=== PATIENT | male | born 1965 | race Caucasian/White ===

== ENCOUNTER 2017-03-18 17:59 | Emergency (ER) | payer MEDICARE, BC ==
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
--- NOTE | 2017-03-18 19:30 | ERNOTE ---
Upper Extremity HPI - General Extremities Pain Location: elbow: left Time Seen by Provider: 03/18/17 18:26 Source: patient Exam Limitations: no limitations - Immun/Allergies/Home Medications Immunizations: IMMUNIZATION HX Immunizations Up to Date Yes History of Influenza Vaccine Yes Hx Pneumococcal Vaccination Yes Allergies/Adverse Reactions: Allergies Allergy/AdvReac Type Severity Reaction Status Date / Time clindamycin Allergy Mild rash Verified 11/10/16 20:36 oxycodone [Oxycodone] AdvReac Intermediate Other Verified 11/10/16 20:36 Home Medications: HOME MEDICATIONS Allopurinol [Zyloprim] 100 mg PO DAILY 12/07/12 [Last Taken Unknown] Torsemide [Demadex] 200 mg PO DAILY 12/07/12 [Last Taken Unknown] Multivitamin DAILY 07/22/13 [Last Taken Unknown] Acetaminophen [Tylenol] 500 mg PO QID PRN 11/10/16 [Last Taken Unknown] Calcium Cit/Mgox/Vit D3/B6/Min [Cvs Calcium Citrate + D Tab] 1 each PO 11/10/16 [Last Taken Unknown] Dabigatran Etexilate Mesylate [Pradaxa] 150 mg PO BID 11/10/16 [Last Taken Unknown] Eplerenone 50 mg PO BID 11/10/16 [Last Taken Unknown] HYDROmorphone HCL [Dilaudid] 2 mg PO QID PRN 11/10/16 [Last Taken Unknown] Magnesium Oxide [Magnesium] 400 mg PO 11/10/16 [Last Taken Unknown] Melatonin/Pyridoxine HCl (B6) [Melatonin 10 mg Tablet] 1 each PO 11/10/16 [Last Taken Unknown] Pantoprazole Sodium [Protonix] 40 mg PO DAILY 11/10/16 [Last Taken Unknown] Potassium Chloride [K-Dur] 20 meq PO 11/10/16 [Last Taken Unknown] Ranitidine HCl [Zantac] 150 mg PO HS 11/10/16 [Last Taken Unknown] Sertraline HCl [Zoloft] 50 mg PO DAILY 11/10/16 [Last Taken Unknown] Sotalol HCl [Betapace] 80 mg PO 11/10/16 [Last Taken Unknown] Zolpidem Tartrate [Ambien] 10 mg PO HS PRN 11/10/16 [Last Taken Unknown] levETIRAcetam [Keppra] 500 mg PO 11/10/16 [Last Taken Unknown] - History of Present Illness Narrative: Mr. Solo is an extraordinarily, located patient he is on both the heart and liver transplant list at this point. He has had multiple episodes of C. difficile. It's very cautious use of antibiotics with him because of his predisposition to C. difficile. Several days ago he bumped his left elbow and now has erythema and edema in the bursa of the left elbow. Did draw off approximately 3 mL of serosanguineous fluid on the elbow which was sent off to the lab for both culture and sensitivity. I'm going to refrain from any use of any oral antibiotics at this time until we get both a culture and sensitivity back from the lab. Occurred: last week Location of Incident: home Severity: moderate Method of Injury: Reports: direct blow Reason for Fall: Reports: tripped Loss of Consciousness: Reports: no loss of consciousness Other Injuries: Reports: none Review of Systems - Review of Systems Constitutional: Present: See HPI EYE: Present: no symptoms reported ENT: Present: no symptoms reported Respiratory: Present: no symptoms reported Cardiology: Present: no symptoms reported Gastrointestinal/Abdominal: Present: other - chronic liver failure Genitourinary: Present: no symptoms reported Musculoskeletal: Present: joint swelling - and erythema Skin: Present: no symptoms reported Neurological: Present: no symptoms reported Endocrine: Present: no symptoms reported Hematologic/Lymphatic: Present: no symptoms reported Psych: Present: no symptoms reported - Patient's Past Medical History Patient History - Medical: Chronic Pain, GERD, Liver Disease, Seizures Patient History - Cardiac/Respiratory: Atrial Fibrillation, Coronary Heart Disease, Other Patient History - Cancer: No Hx of Cancer Patient History - Surgical Procedures: Other Patient History - Other: None - Social History Living Situations: home Psych History: No pertinent hx Smoking Status: Never smoker - Immunizations Immunizations Up to Date: Yes Hx Pneumococcal Vaccination: Yes History of Influenza Vaccine: Yes Physical Exam - Physical Exam General Appearance: Present: wd/wn, alert, moderate distress Eye Exam: Normal inspection: bilateral, PERRL: bilateral Ears, Nose, Throat: Present: normal ENT inspection, H, normal pharynx Neck: Present: normal inspection, nontender Respiratory: Present: no respiratory distress, normal breath sounds, no accessory muscle use, chest nontender, lungs clear Cardiovascular/Chest: Present: regular rate, rhythm, no murmur, normal peripheral pulses Gastrointestinal/Abdominal: Present: normal bowel sounds, nontender, nondistended, soft, no organomegaly Rectal Exam: Present: deferred Back Exam: Present: normal inspection, normal range of motion Extremity Exam: Present: decreased range of motion, joint redness - in the bursa on the left elbow, joint swelling Neurological Exam: Present: alert, oriented, normal mood/affect Skin Exam: Present: normal color, warm/dry Lymphatic Exam: Present: no adenopathy ED Progress - Vital Signs Patient's Vital Signs:: I have reviewed the patient's vital signs. Vital Signs: Vital Signs 03/18/17 18:12 Temperature 37.8 C H Pulse Rate 80 Respiratory 16 Rate Blood Pressure 123/68 O2 Sat by Pulse 99 Oximetry - Progress/Reassessment Chief Complaint: Upper Extremity Injury/Problem Progress:: Unchanged Plan - Plan Plan: We will await the culture sensitivity from the bursal fluid on the left elbow prior to instigating a potential antibiotics. Patient will call his family physician in 2-3 days for results of the cultures. Departure Clinical Impression: Bursitis Qualifiers: Bursitis location: elbow Elbow bursitis location: olecranon bursitis Laterality : left Qualified Code(s): M70.22 - Olecranon bursitis, left elbow - Departure Disposition: Home self-care Condition: Good Instructions: Elbow Bursitis, [id number] Referrals: Lei Sharp MD [Primary Care Provider] -
[2017-03-18 19:40] VITALS: BP 126/63
== END 2017-03-18 19:43 | disposition home or self-care (01) ==
LOC: ER 17:59
DX: M70.22 Olecranon bursitis, left elbow (principal); G89.29 Other chronic pain; K21.9 Gastro-esophageal reflux disease without esophagitis; I48.91 Unspecified atrial fibrillation; Z79.01 Long term (current) use of anticoagulants; K76.9 Liver disease, unspecified

== ENCOUNTER 2017-03-19 09:43 | Emergency (ER) | payer MEDICARE, BC ==
--- NOTE | 2017-03-19 10:05 | ERNOTE ---
Integumentary HPI - General Presenting Symptoms: abscess Time Seen by Provider: 03/19/17 10:02 Source: patient, family - Immun/Allergies/Home Medications Immunizations: IMMUNIZATION HX Immunizations Up to Date No History of Influenza Vaccine No Hx Pneumococcal Vaccination No Allergies/Adverse Reactions: Allergies Allergy/AdvReac Type Severity Reaction Status Date / Time clindamycin Allergy Mild rash Verified 03/19/17 09:58 oxycodone [Oxycodone] AdvReac Intermediate Other Verified 03/19/17 09:58 Home Medications: HOME MEDICATIONS Allopurinol [Zyloprim] 100 mg PO DAILY 12/07/12 [Last Taken Unknown] Torsemide [Demadex] 200 mg PO DAILY 12/07/12 [Last Taken Unknown] Multivitamin 1 tab PO DAILY 07/22/13 [Last Taken Unknown] Acetaminophen [Tylenol] 500 mg PO QID PRN 11/10/16 [Last Taken Unknown] Calcium Cit/Mgox/Vit D3/B6/Min [Cvs Calcium Citrate + D Tab] 1 each PO DAILY [Last Taken Unknown] Dabigatran Etexilate Mesylate [Pradaxa] 150 mg PO BID 11/10/16 [Last Taken Unknown] Eplerenone 50 mg PO BID 11/10/16 [Last Taken Unknown] HYDROmorphone HCL [Dilaudid] 2 mg PO QID PRN 11/10/16 [Last Taken Unknown] Magnesium Oxide [Magnesium] 400 mg PO DAILY 11/10/16 [Last Taken Unknown] Melatonin/Pyridoxine HCl (B6) [Melatonin 10 mg Tablet] 1 each PO DAILY 11/10/16 [Last Taken Unknown] Pantoprazole Sodium [Protonix] 40 mg PO DAILY 11/10/16 [Last Taken Unknown] Potassium Chloride [K-Dur] 20 meq PO DAILY 11/10/16 [Last Taken Unknown] Ranitidine HCl [Zantac] 150 mg PO HS 11/10/16 [Last Taken Unknown] Sertraline HCl [Zoloft] 50 mg PO DAILY 11/10/16 [Last Taken Unknown] Sotalol HCl [Betapace] 80 mg PO DAILY 11/10/16 [Last Taken Unknown] Zolpidem Tartrate [Ambien] 10 mg PO HS PRN 11/10/16 [Last Taken Unknown] levETIRAcetam [Keppra] 500 mg PO DAILY 11/10/16 [Last Taken Unknown] Doxycycline Monohydrate 100 mg PO BID #30 tablet 03/19/17 [Last Taken Unknown] HYDROmorphone HCL [Dilaudid] 2 mg PO QID PRN #14 tablet 03/19/17 [Last Taken Unknown] - History of Present Illness Narrative: Patient was seen by me yesterday in the ER were we georgina off approximately 3 mL' s of serosanguineous fluid off of his left elbow. Patient had a fever yesterday however the area of erythema appears to have extended somewhat beyond the borders of the bursa. Unfortunately both the patient and his are somewhat reluctant to use any kind of antibiotics unless they are absolutely needed because the patient easily predisposes to C. difficile. Dr. Sharp is out of the office and was unable to follow up with this patient and the office staff is unfamiliar with his underlying condition. While the complete culture and sensitivity is still pending the preliminary showed that he likely has a staph aureus species present in the bursa. Location: Reports: upper extremity Quality: Reports: other - erythema and swelling Exposure: Reports: no cause identified Prior Treatment: Reports: recently seen, treated by physician Review of Systems - Review of Systems Constitutional: Present: See HPI EYE: Present: no symptoms reported ENT: Present: no symptoms reported Respiratory: Present: no symptoms reported Cardiology: Present: no symptoms reported Gastrointestinal/Abdominal: Present: no symptoms reported Genitourinary: Present: no symptoms reported Musculoskeletal: Present: no symptoms reported Skin: Present: change in color Neurological: Present: no symptoms reported Endocrine: Present: no symptoms reported Hematologic/Lymphatic: Present: no symptoms reported Psych: Present: no symptoms reported - Patient's Past Medical History Patient History - Medical: Chronic Pain, GERD, Liver Disease, Seizures Patient History - Cardiac/Respiratory: Atrial Fibrillation, Coronary Heart Disease, Other Patient History - Cancer: No Hx of Cancer Patient History - Surgical Procedures: Other Patient History - Other: None - Social History Living Situations: home Abuse History: No History of abuse Psych History: No pertinent hx Smoking Status: Never smoker Alcohol Use: none Drug Use: none - Immunizations Immunizations Up to Date: No Hx Pneumococcal Vaccination: No History of Influenza Vaccine: No Physical Exam - Physical Exam General Appearance: Present: wd/wn, alert, mild distress Eye Exam: Normal inspection: bilateral, PERRL: bilateral Ears, Nose, Throat: Present: normal ENT inspection, H, normal pharynx Neck: Present: normal inspection, nontender Respiratory: Present: no respiratory distress, normal breath sounds, no accessory muscle use, chest nontender, lungs clear Cardiovascular/Chest: Present: regular rate, rhythm, no murmur, normal peripheral pulses Gastrointestinal/Abdominal: Present: normal bowel sounds, nontender, nondistended, soft, no organomegaly Rectal Exam: Present: deferred Back Exam: Present: normal inspection, normal range of motion Extremity Exam: Present: normal inspection, non-tender, normal range of motion, joint redness, joint swelling - around the bursa on the left elbow Neurological Exam: Present: alert, oriented, normal mood/affect Skin Exam: Present: warm/dry, other - erythema has now extended beyond the area of the bursa from yesterday Lymphatic Exam: Present: no adenopathy ED Progress - Results and Orders Patient's Lab Results:: I have reviewed the patient's lab results. - Vital Signs Patient's Vital Signs:: I have reviewed the patient's vital signs. Vital Signs: Vital Signs 03/19/17 09:47 Temperature 36.5 C Pulse Rate 90 Respiratory 16 Rate Blood Pressure 126/73 O2 Sat by Pulse 97 Oximetry - Progress/Reassessment Chief Complaint: Abscess Plan - Plan Plan: We obtained 2 blood cultures today from the patient. We'll give the patient 1 g of vancomycin here in the emergency department, and we will start him on doxycycline as it appears to have some component of protective mechanism against C. difficile infections. The final sensitivity will come back tomorrow and if needed patient will come back into the annex where a PICC line can be placed and the patient can then start on outpatient vancomycin. If the patient has community acquired MRSA than the doxycycline should be reasonable. The patient will see Dr. Sharp next week when he is back in the office. Both the patient and the are requesting that we do whatever we can help keep the patient out of THE [facility]. Given the patient's underlying liver disease and Dr. Sharp being out of town, the patient asked if I would be kind enough to give him only some brief prescription of his Dilaudid to help control the pain from the cellulitis and the elbow. I did relent and give him 14 of the Dilaudid 2 mg, if he needs any more he will need to check with Dr. Sharp next week. Departure Clinical Impression: Bursitis Qualifiers: Bursitis location: elbow Elbow bursitis location: olecranon bursitis Laterality : left Qualified Code(s): M70.22 - Olecranon bursitis, left elbow Cellulitis Qualifiers: Site of cellulitis: extremity Site of cellulitis of extremity: upper extremity Laterality: left Qualified Code(s): L03.114 - Cellulitis of left upper limb - Departure Disposition: Home self-care Condition: Good Instructions: Elbow Bursitis, [id number] Referrals: Lei Sharp MD [Primary Care Provider] - Prescriptions: Doxycycline Monohydrate 100 mg PO BID #30 tablet HYDROmorphone HCL [Dilaudid] 2 mg PO QID PRN #14 tablet PRN Reason: Moderate Pain
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
[2017-03-19 10:34] LABS: Hematocrit 41.3 % (42.0-52.0); Hemoglobin 13.3 gm/dL (13.5-18.0); Mean Cell Volume 86.8 fl (78-100); Mean Corpuscular Hemoglobin 27.9 pg (27-31); Mean Corpuscular Hgb Conc 32.2 g/dl (32-36); Mean Platelet Volume 10.7 fl (6.0-9.5); Neutrophil # 2.7 K/mm3 (1.3-6.0); Neutrophil % 77.8 % (42-75.0); Platelet Count 80 K/mm3 (150-450); Red Blood Count 4.76 M/mm3 (4.7-6.0); White Blood Count 3.4 K/mm3 (4.0-10.5)
[2017-03-19] MEDS ORDERED: VANCOMYCIN HCL 1 GM in DEXTROSE 5 % IN WATER 250 ML IV ONE ×2 (10:51)
[2017-03-19 10:53] LABS: Albumin * 3.1 gm/dl (3.4-5.0); Anion Gap 7.6 mmol/L (6.8-13.8); BUN/Creatinine Ratio 15.7 (9.0-21.6); Bilirubin, Total 0.6 mg/dL (0.0-1.1); CRP 2.9 mg/dL (0.0-0.9); Calcium * 8.6 mg/dL (7.9-10.9); Carbon Dioxide 34.9 mmol/L (24-32.6); Magnesium 1.7 mg/dL (1.2-2.8); Potassium 3.5 mmol/L (3.4-4.6); Total Protein 6.5 gm/dL (6.2-8.2)
[2017-03-19 13:31] VITALS: BP 92/57
== END 2017-03-19 13:22 | disposition home or self-care (01) ==
LOC: ER 09:43
DX: M70.22 Olecranon bursitis, left elbow (principal); L03.114 Cellulitis of left upper limb; R56.9 Unspecified convulsions; K21.9 Gastro-esophageal reflux disease without esophagitis; I50.9 Heart failure, unspecified; I48.91 Unspecified atrial fibrillation; Z79.1 Long term (current) use of non-steroidal anti-inflammatories (NSAID)